=== PATIENT | female | born 2000 | race Caucasian/White ===

== ENCOUNTER → 2022-07-27 | Outpatient (CLI) | payer MEDICAID, SELFPAY ==
[2022-07-27 13:21] LABS: Absolute Lymphocyte Count 1.81 X10^3/uL (0.83-4.51); Basophil# 0.07 X10^3/uL; Basophil% 0.6 % (0-1); Eosinophil# 0.06 X10^3/uL; Eosinophils% 0.5 % (0-5); Hematocrit 33.9 % (37-47); Hemoglobin 9.9 g/dL (12.0-15.0); Lymphocyte # 1.81 X10^3/ul (0.83-4.51); Lymphocyte % 15.6 % (19-41); Mean Corp Hgb Conc 29.2 g/dL (32-36); Mean Corpuscular Hgb 21.2 pg (27.0-32.0); Mean Corpuscular Volume 72.6 fL (81-99); Mean Platelet Vol. 10.2 fl (6.2-12.0); Monocyte# 0.69 X10^3/uL; Monocyte% 5.9 % (0-10); NRBC Flagged by Analyzer 0 % (0-5); Neutrophil # 8.95 X10^3/uL (2.7-7.7); Neutrophil % 77.1 % (47-70); POSITIVE MORPHOLOGY YES; Platelet Count 297 K/mm3 (150-450); RBC Distribution Width CV 21.5 % (11.6-14.6); RBC Distribution Width SD 55.9 fl (35.1-43.9); Red Blood Count 4.67 M/mm3 (4.2-5.4); White Blood Count 11.6 K/mm3 (4.4-11.0)
[2022-07-27 14:10] LABS: HIV - WCH Non-Reactive (Nonreactive); Hepatitis B Surface Antigen Non-Reactive (Nonreactive); Hepatitis C Antibody Non-Reactive (Nonreactive); Rubella IgG Reactive (Nonreactive); Syphilis Antibodies Non-reactive
[2022-07-27 14:11] LABS: Differential Indicated SCAN CRITERIA MET
[2022-07-27 14:17] LABS: Anisocytosis 1+
[2022-07-28 08:58] LABS: V-Zoster IgG (Immunity) < 135 index (Immune >165)
[2022-07-29 05:07] LABS: Chlamydia By Nucleic Acid AMP Negative (Negative)
[2022-07-29 17:33] LABS: Gonococcus By Nucleic Acid AMP Negative (Negative)
[2022-08-02 16:55] LABS: HPV Reflexed? NOT INDICATED
== END | disposition home or self-care (01) ==
LOC: WOBLAB 12:04
PROVIDERS: Visit Provider Student in an Organized Health Care Education/Training Program
DX: Z34.81 Encounter for supervision of other normal pregnancy, first trimester (principal); Z12.4 Encounter for screening for malignant neoplasm of cervix; Z11.3 Encounter for screening for infections with a predominantly sexual mode of transmission
CPT/HCPCS: 36415; 85025; 86703; 86762; 86780; 86787; 86803; 87086; 87088; 87340; 87491; 87591; 88175; G0145

== ENCOUNTER → 2022-11-16 | Outpatient (CLI) | payer MEDICAID, SELFPAY ==
[2022-11-16 10:41] LABS: Absolute Lymphocyte Count 1.73 X10^3/uL (0.83-4.51); Absolute Neutrophil Count 7.2 X10^3/uL (2.0-7.7); Basophil# 0.07 X10^3/uL; Basophil% 0.7 % (0-1); Eosinophil# 0.38 X10^3/uL; Eosinophils% 3.8 % (0-5); Hemoglobin 9.6 g/dL (12.0-15.0); Lymphocyte # 1.73 X10^3/ul (0.83-4.51); Lymphocyte % 17.2 % (19-41); Mean Corpuscular Hgb 26.7 pg (27.0-32.0); Mean Corpuscular Volume 83.3 fL (81-99); Mean Platelet Vol. 10.8 fl (6.2-12.0); Monocyte# 0.64 X10^3/uL; Monocyte% 6.4 % (0-10); NRBC Flagged by Analyzer 0 % (0-5); Neutrophil % 71.5 % (47-70); Platelet Count 213 K/mm3 (150-450); RBC Distribution Width CV 16.3 % (11.6-14.6); RBC Distribution Width SD 49.5 fl (35.1-43.9); White Blood Count 10.1 K/mm3 (4.4-11.0)
[2022-11-16 10:44] LABS: Glucose Challenge Gest 1H 50g 74 mg/dL (70-140)
== END | disposition home or self-care (01) ==
LOC: WOBLAB 09:02
PROVIDERS: Visit Provider Student in an Organized Health Care Education/Training Program
DX: Z34.82 Encounter for supervision of other normal pregnancy, second trimester (principal)
CPT/HCPCS: 36415; 82950; 85025

== ENCOUNTER 2023-06-10 20:05 | Emergency (ER) | payer MEDICAID, SELFPAY ==
[2023-06-10 20:07] VITALS: BP 125/72; PULSE 69; RESP 18; TEMP 36.6; O2SAT 100; BMI 25.1
--- NOTE | 2023-06-10 20:11 | RAD_ITS ---
EXAM: XR RIGHT FOOT COMPLETE, 3 OR MORE VIEWS CLINICAL INDICATION: redness/swelling TECHNIQUE: Frontal, lateral and oblique views of the right foot. COMPARISON: Ankle on the same date. FINDINGS: BONES/JOINTS: No significant abnormality. No acute fracture. No subluxation. Normal alignment. Preservation of the joint space. No sclerotic or destructive changes observed. SOFT TISSUES: Soft tissue swelling throughout the foot and ankle. No radiopaque foreign body. RAD/Foot min 3 Views IMPRESSION: Soft tissue swelling throughout the foot and ankle. No acute osseous findings. Correlate clinically and consider cellulitis. Electronically Signed: Vj Lau DO at 20:36 EDT ,
--- NOTE | 2023-06-10 20:11 | RAD_ITS ---
EXAM: XR RIGHT ANKLE COMPLETE, 3 OR MORE VIEWS CLINICAL INDICATION: redness/swelling TECHNIQUE: Frontal, lateral and oblique views of the right ankle. COMPARISON: Foot on the same date. FINDINGS: BONES/JOINTS: No significant abnormality. No acute fracture. No subluxation. Normal alignment. Preservation of the joint space. No sclerotic or destructive changes observed. SOFT TISSUES: Soft tissue swelling in the ankle. No radiopaque foreign body. RAD/Ankle min 3 Views IMPRESSION: Soft tissue swelling in the ankle. No acute fracture. Correlate clinically. Consider cellulitis. Electronically Signed: Vj Lau DO at 20:35 EDT ,
--- NOTE | 2023-06-10 23:01 | EX.ED.DYSGE1 ---
HPI History of Present Illness Chief Complaint: Cellulitis Informant: patient Narrative Narrative: Patient presents with concern for infection in her right ankle. She thinks she might of had a fever about 5 or 6 days ago. But she did not have the ankle problem then. About 4 or so days ago she had a blister on the back of her heel from a shoe. It then is gotten red and irritated. She now has some erythema spreading to the lateral side of the ankle. She can move the ankle without pain. No nausea vomiting. No immunosuppression. No swelling of the calf. No chest pain or shortness of breath. PFSH PFSH Home Medications cephalexin 500 mg capsule 500 mg PO Q6 #40 CAPSULES 06/10/23 [Rx Last Taken Unknown] Allergy/AdvReac Type Severity Reaction Status Date / Time No Known Allergies Allergy Verified 06/10/23 20:06 ROS ROS ED Constitutional Constitutional ED: Reports other Details: Patient states she may have had a fever but it would have been 5 or 6 days ago before she even had a blister on the back of her ankle. ; Denies chills, fever(s), subjective or sweats Gastrointestinal Gastrointestinal: Denies abdominal pain, nausea or vomiting Integumentary Reports rash and other Details: See HPI Neurologic Neurologic: Denies paresthesias or weakness Hematologic/Lymphatic Hematologic/Lymphatic: Denies easy bruising or lymphadenopathy EXAM Physical Exam Narrative Exam Narrative: Patient awake alert no acute distress laying comfortably in bed. HEENT is normal. Cardiorespiratory shows easy unlabored breathing with saturations 100% on room air showing no hypoxia. Heart is regular. Extremities show no deformity. Calf is not tender or swollen. No cord. No distended veins. Skin: There is an open area and blister on the posterior aspect of the right heel overlying the Achilles. It is weeping a little bit. It is a little erythematous around it. But it is not abscessed. There is nothing to drain. There is some erythema and warmth spreading more laterally over the lateral aspect of the heel up toward the inferior tip of the lateral malleolus. But again, no pain with ankle motion and no indication of effusion. Const Vital Signs: 06/10/23 20:07 Temperature 97.8 F Temperature Source Temporal Pulse Rate 69 Respiratory Rate 18 Blood Pressure 125/72 H Blood Pressure Mean 89 Pulse Ox 100 Oxygen Delivery Method Room Air MDM MDM MDM Narrative Medical decision making narrative: Findings do appear to be consistent with a little bit of developing cellulitis around the heel wound. There is nothing to drain. We will get her started on antibiotics. She has no history of MRSA and this started as a skin abrasion not an abscess. I think cephalexin will be appropriate. Discharge Plan Triage Chief Complaint: Cellulitis Other Complaint: Lower Extremity Injury ED Provider: Martin Ferrera Dx/Rx/DC Orders Clinical Impression: Cellulitis of right ankle Instructions: Cellulitis Dc Prescriptions: New cephalexin [cephalexin] 500 mg capsule 500 mg PO Q6 Qty: 40 0RF Primary Care Provider: Care Physician,No Primary Referrals: Fast,Nanette, DO [Med Staff - Cancer Genetic Counselor] - 3-5 Days if not improving Care Physician,No Primary [Primary Care Provider] - Disposition Disposition: Home, Self Care
[2023-06-10] MEDS: Cephalexin 250 MG Capsule 500 MG PO (23:04)
[2023-06-10 23:07] VITALS: BP 124/51; PULSE 58; RESP 18; TEMP 36.7; O2SAT 100
== END 2023-06-10 23:22 | disposition home or self-care (01) ==
PROVIDERS: Emergency Provider Emergency Medicine; Visit Provider Emergency Medicine
DX: L03.115 Cellulitis of right lower limb (principal)
CPT/HCPCS: 73610; 73630; 99283